=== PATIENT | female | born 1965 | race Caucasian/White ===

== ENCOUNTER 2018-03-15 11:00 | Emergency (ER) | payer BC ==
[~2018-03-15] VITALS: Ht 167.6 cm; Wt 100.5 kg
[~2018-03-15 11:00] MED LIST: ASCORBIC ACID100 MG; ASCORBIC ACID250 MG; CALCIO DEL MAR500 MG; EFFEXOR XR37.5 MG PO; EFFEXOR37.5 MG; FISH OIL SOFTG1 EACH; NICOTINE PATCH; PERCOCET 5/31 TABLET PO; PROTONIX40 MG PO; ULTRAM50 MG PO; VITAMIN B-1001 EAC1; VITAMIN B12-FO1 EACH; VITAMIN D; VITAMIN E200 UNIT; WELLBUTRIN XL300 MG; WELLBUTRIN XL300 MG PO
[2018-03-15 13:23] LABS: APPEARANCE CLEAR ((CLEAR)); BILIRUBIN NEGATIVE; BLOOD NEGATIVE; COLOR YELLOW ((YELLOW)); GLUCOSE (STRIP) NEGATIVE; KETONES NEGATIVE; LEUKOCYTES NEGATIVE; NITRITE NEGATIVE; PROTEIN (STRIP) NEGATIVE; SPECIFIC GRAVITY 1.008 (1.000-1.030); UROBILINOGEN 0.2 MG/DL (0.2-1.0)
[2018-03-15] MEDS ORDERED: FLEXERIL10 MG PO (13:42)
[2018-03-15] MEDS ORDERED: MEDROL DOSEPAK4 MG PO (13:42)
[2018-03-15 14:10] VITALS: BP 146/85
== END 2018-03-15 14:12 | disposition home or self-care (01) ==
LOC: EME 11:00
PROVIDERS: Physician Assistant
DX: M54.5 Low back pain (principal); M54.16 Radiculopathy, lumbar region; I10 Essential (primary) hypertension; Z86.711 Personal history of pulmonary embolism; F17.200 Nicotine dependence, unspecified, uncomplicated; Z90.710 Acquired absence of both cervix and uterus; Z88.1 Allergy status to other antibiotic agents
CPT/HCPCS: 72100; 81003; 99281; 99283